=== PATIENT | male | born 1970 | race Caucasian/White ===

== ENCOUNTER → 2018-04-14 09:24 | Outpatient (CLI) | payer BC, SELFPAY ==
[2018-04-14 09:41] LABS: Basophils # 0.1 K/mm3 (0-0.2); Basophils % 0.7 % (0.1-2.0); Eosinophils # 0.1 K/mm3 (0.0-0.4); Hematocrit 44.6 % (42.0-52.0); Hemoglobin 15.3 g/dL (14.1-18.0); Lymphocytes # 2.5 K/mm3 (0.7-4.5); Lymphocytes % 33.2 K/mm3 (10-50); Mean Corpuscular HGB Conc 34.4 g/dL (31.8-35.4); Mean Corpuscular Hemoglobin 32.5 pg (27.0-31.2); Mean Corpuscular Volume 94.4 fl (80-94); Mean Platelet Volume 7.5 fl (7.4-10.4); Monocytes # 0.5 K/mm3 (0.1-1.0); Neutrophils # 4.4 K/mm3 (1.8-7.8); Neutrophils % 58.2 % (37.0-80.0); Platelet Count 280 K/mm3 (142-424); Red Blood Count 4.72 M/mm3 (4.60-6.20); White Blood Count 7.6 K/mm3 (4.8-10.8)
--- NOTE | 2018-04-14 09:52 | XR_ITS ---
XR chest 2V HISTORY: Cough ITS.REASON: PRE-OP ORDERING PHYSICIAN: Referral Provider, PATIENT AGE: 47 years COMPARISON: None FINDINGS: Unremarkable cardiovascular structures. There is evidence of old granulomatous disease with calcified hilar nodes, calcified right middle lobe granuloma, a calcified granulomas in the left upper lobe. No lobar consolidation or collapse. No acute bony anomalies IMPRESSION: Old granulomatous disease, no acute finding
[2018-04-14 10:41] LABS: Alanine Aminotransferase 40 U/L (12-78); Albumin Level 4.1 gm/dL (3.4-5.0); Albumin/Globulin Ratio 1.3 (1.1-1.8); Alkaline Phosphatase 75 U/L (46-116); Anion Gap 12.5 mEq/L (5-15); Aspartate Amino Transferase 21 U/L (15-37); Bilirubin,Total 0.5 mg/dL (0.2-1.0); Blood Urea Nitrogen 16 mg/dL (7-18); Calcium 9.8 mg/dL (8.5-10.1); Carbon Dioxide 31 mmol/L (21.0-32.0); Chloride 106 mmol/L (98-107); Creatinine,Serum 1.08 mg/dL (0.70-1.30); Estimated Glomerular Filt Rate 73 ml/min (>60); GFR (African American) 88 ML/MIN (>60); Globulin 3.2 gm/dl (1.3-3.2); Glucose 89 mg/dL (74-106); Potassium 5.5 mmoL/L (3.5-5.1); Sodium 144 mmol/L (136-145); Total Protein,Serum 7.3 gm/dL (6.4-8.2)
== END ==
PROVIDERS: Visit Provider Podiatrist Public Medicine
DX: Z01.818 Encounter for other preprocedural examination (principal); M20.21 Hallux rigidus, right foot
CPT/HCPCS: 36415; 71046; 80053; 85025; 93005